=== PATIENT | female | born 1965 | race Caucasian/White ===

== ENCOUNTER 2017-03-31 20:50 | Emergency (ER) | payer OTHER ==
[2017-03-31 21:08] VITALS: BP 126/88
--- NOTE | 2017-03-31 21:24 | EDM.PDOC ---
[id number] THROAT Time Seen by Provider: 03/31/17 21:10 Source of Information: Reports: Patient History Limitations: Reports: No Limitations - History of Present Illness INITIAL COMMENTS - FREE TEXT/NARRATIVE: 51-year-old female with a sore throat for the past 3 days, worse today. No fevers or chills. No cough or rash. Onset: Gradual Duration: Day(s): (Over the past 3 days) Throat Pain Score (Numeric/FACES): 8 - Related Data Allergies Allergy/AdvReac Type Severity Reaction Status Date / Time meperidine [From Demerol] Allergy Itching Verified 03/31/17 21:12 nitrofurantoin Allergy Anaphylactic Verified 03/31/17 21:12 [From Macrobid] Shock Penicillins Allergy Hives Verified 03/31/17 21:12 Home Meds: Home Meds Escitalopram Oxalate [Lexapro] 30 mg PO DAILY 03/31/17 [History] Levothyroxine 75 mcg PO ACBREAKFAST 03/31/17 [History] Past Medical History - Infectious Disease History Infectious Disease History: Reports: Chicken Pox - Past Surgical History GI Surgical History: Reports: Appendectomy Female Surgical History: Reports: Hysterectomy Social & Family History - Tobacco Use Smoking Status *Q: Never Smoker - Caffeine Use Caffeine Use: Reports: Soda - Recreational Drug Use Recreational Drug Use: No ED ROS ENT - Review of Systems Review Of Systems: See Below Constitutional: Denies: Fever, Chills, Malaise HEENT: Reports: Throat Pain Respiratory: Denies: Shortness of Breath Cardiovascular: Denies: Chest Pain GI/Abdominal: Denies: Abdominal Pain Skin: Reports: No Symptoms ED EXAM, ENT - Physical Exam Exam: See Below Exam Limited By: No Limitations General Appearance: Alert, No Apparent Distress Mouth/Throat: Pharyngeal Erythema Head: Atraumatic Neck: No: Lymphadenopathy (R), Lymphadenopathy (L) Respiratory/Chest: No Respiratory Distress, Lungs Clear Cardiovascular: Regular Rate, Rhythm Course - Vital Signs Last Recorded V/S: Last Vital Signs Temp 97.6 F 03/31/17 21:07 Pulse 86 03/31/17 21:07 Resp 16 03/31/17 21:07 BP 126/88 03/31/17 21:07 Pulse Ox 98 03/31/17 21:07 - Orders/Labs/Meds Orders: Active Orders 24 hr Category Date Time Status CULTURE STREP A CONFIRMATION [RM] Routine Lab 03/31/17 21:22 Results STREP SCRN A RAPID W CULT CONF [] Routine Lab 03/31/17 21:22 Results Meds: Medications Discontinued Medications Generic Name Dose Route Start Last Admin Trade Name Amy PRN Reason Stop Dose Admin Lidocaine HCl Confirm 03/31/17 21:54 03/31/17 21:58 Xylocaine 2% Viscous Administered 03/31/17 21:55 Not Given Dose 15 ml .ROUTE .STK-MED ONE Lidocaine HCl 20 ml 03/31/17 21:55 03/31/17 21:59 Xylocaine 2% Viscous PO 03/31/17 21:56 20 ml ONETIME ONE Administration - Re-Assessments/Exams Free Text/Narrative Re-Assessment/Exam: 03/31/17 21:24 A rapid strep was obtained. 03/31/17 21:49 Rapid strep was negative. Patient was given some viscous lidocaine for symptom control and can recheck in 2-3 days if not improving satisfactorily. No antibiotics are indicated at this time. Departure - Departure Time of Disposition: 22:00 Disposition: Home, Self-Care 01 Condition: Good Clinical Impression: Pharyngitis Qualifiers: Pharyngitis/tonsillitis etiology: unspecified etiology Qualified Code(s): J02.9 - Acute pharyngitis, unspecified - Discharge Information Instructions: Pharyngitis, [id number] Referrals: PCP,None [Primary Care Provider] - Forms: ED Department Discharge Care Plan Goals: Use topical numbing medication as needed for the next 2-3 days, recheck if not improving satisfactorily. - My Orders Last 24 Hours: My Active Orders 03/31/17 21:22 CULTURE STREP A CONFIRMATION [RM] Routine STREP SCRN A RAPID W CULT CONF [] Routine - Assessment/Plan Last 24 Hours: My Active Orders 03/31/17 21:22 CULTURE STREP A CONFIRMATION [RM] Routine STREP SCRN A RAPID W CULT CONF [] Routine
[2017-03-31] MEDS ORDERED: Lidocaine 2% Viscous Solution 100 ML Bottle PO ONE ×2 (21:48→21:55)
[2017-03-31] MEDS ORDERED: Lidocaine 2% Viscous Solution 15 ML Cup ONE (21:54)
== END 2017-03-31 22:00 | disposition home or self-care (01) ==
LOC: JP.ED 20:50
DX: J02.9 Acute pharyngitis, unspecified (principal); Z88.0 Allergy status to penicillin; Z88.8 Allergy status to other drugs, medicaments and biological substances; Z79.899 Other long term (current) drug therapy; Z90.49 Acquired absence of other specified parts of digestive tract
CPT/HCPCS: 87081; 87430; 99283; A9270

== ENCOUNTER 2021-04-23 12:39 | Emergency (ER) | payer OTHER ==
[2021-04-23 13:05] VITALS: BP 130/81; PULSE 76
--- NOTE | 2021-04-23 13:25 | EDM.PDOC ---
<Jen Grace - Last Filed: 04/23/21 13:47> ED HPI GENERAL MEDICAL PROBLEM - General Chief Complaint: Upper Extremity Injury/Pain Stated Complaint: FELL AND HURT RT ELBOW Time Seen by Provider: 04/23/21 13:10 Source of Information: Reports: Patient History Limitations: Reports: No Limitations - History of Present Illness INITIAL COMMENTS - FREE TEXT/NARRATIVE: 55 year old female arrives with complaints of right elbow pain. She reports that she was using stairs when she slipped and fell. All of her weight came down on her right elbow. Severe pain initially and took her several minutes to gain composure. Was not evaluated yesterday due to a in the family. Came in today due to persistent pain and swelling of the elbow. She is able to move shoulder without pain, no wrist or hand pain. Will not fully extend elbow due to pain. mild amount of swelling noted as well as bruising at the posterior aspect. Onset: Sudden Onset Date: 04/21/21 Duration: Day(s): Location: Reports: Other (right elbow pain after fall on thursday) Quality: Reports: Throbbing Severity: Moderate Improves with: Reports: Rest Worsens with: Reports: Movement Context: Reports: Activity (walking down stairs and slipped) Associated Symptoms: Reports: No Other Symptoms. Denies: Cough, Diaphoresis, Fever/Chills, Headaches, Nausea/Vomiting, Rash - Related Data Allergies Allergy/AdvReac Type Severity Reaction Status Date / Time ciprofloxacin [From Cipro] Allergy Tachycardia Verified 04/23/21 13:06 meperidine [From Demerol] Allergy Itching Verified 04/23/21 13:06 nitrofurantoin Allergy Anaphylactic Verified 04/23/21 13:06 [From Macrobid] Shock Penicillins Allergy Hives Verified 04/23/21 13:06 Home Meds: Home Meds Escitalopram Oxalate [Lexapro] 30 mg PO DAILY 03/31/17 [History] Levothyroxine 75 mcg PO ACBREAKFAST 03/31/17 [History] Divalproex Sodium [Depakote] 125 mg PO BEDTIME 04/23/21 [History] Rosuvastatin [Crestor] 10 mg PO BEDTIME 04/23/21 [History] hydrOXYzine HCL [Hydroxyzine HCl] 25 mg PO BEDTIME 04/23/21 [History] Past Medical History Cardiovascular History: Reports: High Cholesterol Psychiatric History: Reports: Mood Swings - Infectious Disease History Infectious Disease History: Reports: Chicken Pox - Past Surgical History GI Surgical History: Reports: Appendectomy Female Surgical History: Reports: Hysterectomy Social & Family History - Tobacco Use Tobacco Use Status *Q: Never Tobacco User - Caffeine Use Caffeine Use: Reports: Soda Review of Systems - Review of Systems Review Of Systems: See Below Constitutional: Reports: No Symptoms. Denies: Chills, Diaphoresis, Fever, Weakness Eyes: Reports: No Symptoms Ears: Reports: No Symptoms. Denies: Dizziness Nose: Reports: No Symptoms Mouth/Throat: Reports: No Symptoms. Denies: Lip Swelling, Loose Teeth Respiratory: Reports: No Symptoms. Denies: Shortness of Breath, Wheezing Cardiovascular: Reports: No Symptoms. Denies: Chest Pain, Edema, Lightheadedness, Palpitations GI/Abdominal: Reports: No Symptoms. Denies: Abdominal Pain, Diarrhea, Nausea, Vomiting Genitourinary: Reports: No Symptoms Musculoskeletal: Reports: Other (right elbow pain after fall on thursday) Skin: Reports: No Symptoms. Denies: Diaphoresis Neurological: Reports: No Symptoms. Denies: Confusion, Headache, Numbness Psychiatric: Reports: No Symptoms ED EXAM, GENERAL - Physical Exam Exam: See Below Free Text/Narrative:: Rebecca is well appearing resting on chair in exam room 2. She is alert and oriented. skin is warm and dry. Her respirations are regular and non labored. She had no bruising or other obvious injuries to her head, neck, back, chest, abdomen, or other extremities. Right elbow appears mildly swollen with some bruising. Pain with extension and palpation of the elbow. Sensation is intact. Abdomen is soft and non tender. Lung sounds are clear throughout. No pedal edema. Exam Limited By: No Limitations General Appearance: Alert, WD/WN, No Apparent Distress Ears: Normal External Exam Nose: No Blood Throat/Mouth: Normal Inspection, Normal Teeth, No Airway Compromise Head: Atraumatic Neck: Normal Inspection, Supple, Non-Tender, Full Range of Motion Respiratory/Chest: No Respiratory Distress, Lungs Clear, Normal Breath Sounds, No Accessory Muscle Use, Chest Non-Tender. No: Respiratory Distress, Decreased Breath Sounds, Crackles, Wheezing Cardiovascular: Normal Peripheral Pulses, Regular Rate, Rhythm, No Edema. No: Tachycardia GI/Abdominal: Soft, Non-Tender. No: Guarding, Rigid, Tender (Female) Exam: Deferred Rectal (Female) Exam: Deferred Back Exam: Normal Inspection, Full Range of Motion Extremities: Other (mild swelling to right elbow post fall on thursday, bruise to posterior aspect, no numbness or tingling) Neurological: Alert, Oriented, Normal Cognition, Normal Gait. No: Confused, Slow to Respond Psychiatric: Normal Affect, Normal Mood Skin Exam: Warm, Dry, Intact, Normal Color, No Rash. No: Diaphoretic, Erythema, Increased Warmth Lymphatic: No Adenopathy Course - Vital Signs Text/Narrative:: Right Elbow Xray ordered. Results pending at this time. Patient agrees to this plan of care. Departure - Departure Disposition: Refer to Observation Clinical Impression: Bone bruise - Discharge Information Instructions: Elbow Contusion Referrals: Alexa Cruz MD [Primary Care Provider] - Forms: ED Department Discharge Additional Instructions: The Xray of your elbow was normal. You likely have a bone bruise/ contusion. You can use Tylenol and ibuprofen for pain and ice as needed. Return to ER if swelling increases, if you have any new injuries or new concerning symptoms. We will call you if the official read of the xray comes back abnormal. Sepsis Event Note (ED) - Evaluation Sepsis Screening Result: No Definite Risk <Bharat Estevez - Last Filed: 04/23/21 18:34> Course - Vital Signs Last Recorded V/S: Last Vital Signs Temp 98 F 04/23/21 13:11 Pulse 76 04/23/21 13:11 Resp 16 04/23/21 13:11 BP 130/81 04/23/21 13:11 Pulse Ox 97 04/23/21 13:11 Departure - Departure Time of Disposition: 14:03 Sepsis Event Note (ED) - Focused Exam Vital Signs: Vital Signs Temp Pulse Resp BP Pulse Ox 04/23/21 13:11 98 F 76 16 130/81 97 04/23/21 13:04 98 F 76 16 130/81 97 Attestation - Student - Attestation Statement Attestation Statement: I personally performed or re-performed the physical examination and medical decision making. I have verified all student documentation or findings, including history, physical exam and/or medical decision making.
--- NOTE | 2021-04-23 14:15 | CRLCR ---
For Patients: As a result of the Cures Act, medical imaging exams and procedure reports are released immediately into your electronic medical record. You may view this report before your referring provider. If you have questions, please contact your health care provider. INDICATION: 2 imagesfell 2 days ago, landed on her elbow HISTORY: Fall. COMPARISON: None. TECHNIQUE: Right elbow, 2 views. FINDINGS: There is osteophytic spurring present at the right elbow joint. There is no acute fracture. There is no malalignment. There is no lytic or blastic bone lesion. The anterior fat pad is not distended. The posterior fat pad is not visualized. IMPRESSION: 1. Degenerative arthrosis of the right elbow. 2. No acute fracture is identified. Dictated by Tim Scott MD @ 04/23/2021 2:13:20 PM Dictated by: Tim Scott MD @ 04/23/2021 14:13:28 (Electronically Signed)
== END 2021-04-23 14:03 ==
LOC: JP.ED 12:39
DX: S50.01XA Contusion of right elbow, initial encounter (principal); E78.00 Pure hypercholesterolemia, unspecified; Z88.1 Allergy status to other antibiotic agents; Z88.5 Allergy status to narcotic agent; Z88.0 Allergy status to penicillin; Z79.899 Other long term (current) drug therapy; W10.9XXA Fall (on) (from) unspecified stairs and steps, initial encounter
CPT/HCPCS: 73070-RT; 99283-25

== ENCOUNTER 2021-08-11 13:40 | Emergency (ER) | payer OTHER ==
--- NOTE | 2021-08-11 16:24 | EDM.PDOC ---
ED HPI GENERAL MEDICAL PROBLEM - General Chief Complaint: Back Pain or Injury Stated Complaint: SEVERE LT HIP/LEG PAIN Time Seen by Provider: 08/11/21 16:24 Source of Information: Reports: Patient, RN Notes Reviewed History Limitations: Reports: No Limitations - History of Present Illness INITIAL COMMENTS - FREE TEXT/NARRATIVE: Rebecca presents today for ongoing complaints of left low back pain with radiation to left leg. She complains of left leg sensation of numbness, tingling like it is asleep. Pain is 8-9/10 and constant. She has tried use of flexeril, motrin 800mg and tylenol 500mg for pain. Use of topicals have not helped her pain. She was evaluated per her primary and orthopedics and told she has some kind of nerve impingment. She has not had any advanced imaging done. She denies any recent injury/trauma/repetitive movements. She denies any saddle anesthesia or bladder/bowel incontinence. She denies fever, chills, nausea, vomiting, change in bowel/bladder or other concerns. Left Hip Pain Score (Numeric/FACES): 9 - Related Data Allergies Allergy/AdvReac Type Severity Reaction Status Date / Time ciprofloxacin [From Cipro] Allergy Tachycardia Verified 08/11/21 16:09 meperidine [From Demerol] Allergy Itching Verified 08/11/21 16:09 nitrofurantoin Allergy Anaphylactic Verified 08/11/21 16:09 [From Macrobid] Shock Penicillins Allergy Hives Verified 08/11/21 16:09 Home Meds: Home Meds Levothyroxine 88 mcg PO ACBREAKFAST 03/31/17 [History] Divalproex Sodium [Depakote] 125 mg PO BEDTIME 04/23/21 [History] Rosuvastatin [Crestor] 10 mg PO BEDTIME 04/23/21 [History] hydrOXYzine HCL [Hydroxyzine HCl] 25 mg PO BEDTIME 04/23/21 [History] Cyclobenzaprine [Flexeril] 10 mg PO ASDIRECTED 08/11/21 [History] buPROPion HCL [Wellbutrin Xl] 150 mg PO DAILY 08/11/21 [History] Past Medical History Cardiovascular History: Reports: High Cholesterol [employer] History: Reports: Psychiatric History: Reports: Depression, Mood Swings Endocrine/Metabolic History: Reports: Hypothyroidism - Infectious Disease History Infectious Disease History: Reports: Chicken Pox - Past Surgical History GI Surgical History: Reports: Appendectomy Female Surgical History: Reports: Hysterectomy Social & Family History - Tobacco Use Tobacco Use Status *Q: Never Tobacco User - Caffeine Use Caffeine Use: Reports: Coffee, Tea - Recreational Drug Use Recreational Drug Use: No ED ROS GENERAL - Review of Systems Review Of Systems: See Below Constitutional: Reports: No Symptoms HEENT: Reports: No Symptoms Respiratory: Reports: No Symptoms Cardiovascular: Reports: No Symptoms Endocrine: Reports: No Symptoms GI/Abdominal: Reports: No Symptoms : Reports: No Symptoms Musculoskeletal: Reports: Leg Pain, Other (low left back pain with radiculopathy to left leg) Skin: Reports: No Symptoms Neurological: Reports: Numbness (left leg and left foot), Tingling (left leg and left foot). Denies: Dizziness, Headache, Paresthesia, Pre-Existing Deficit, Syncope, Tremors, Difficulty Walking, Weakness, Change in Speech, Gait Disturbance Psychiatric: Reports: No Symptoms Hematologic/Lymphatic: Reports: No Symptoms Immunologic: Reports: No Symptoms ED EXAM,LOWER BACK PAIN/INJURY - Physical Exam Exam: See Below Exam Limited By: No Limitations General Appearance: Alert, WD/WN, Mild Distress Eye Exam: Bilateral Eye: Normal Inspection, PERRL Ears: Normal External Exam, Normal Canal, Hearing Grossly Normal, Normal TMs Nose: Normal Inspection, Normal Mucosa, No Blood Throat/Mouth: Normal Inspection, Normal Lips, Normal Teeth, Normal Gums, Normal Oropharynx, Normal Voice, No Airway Compromise Head: Atraumatic, Normocephalic Neck: Normal Inspection, Supple, Non-Tender, Full Range of Motion. No: Lymphadenopathy (R), Lymphadenopathy (L) Respiratory/Chest: No Respiratory Distress, Lungs Clear, Normal Breath Sounds, No Accessory Muscle Use, Chest Non-Tender. No: Crackles, Rales, Rhonchi, Wheezing, Stridor, Retractions, Splinting Cardiovascular: Normal Peripheral Pulses, Regular Rate, Rhythm, No Edema, No Gallop, No Murmur, No Rub GI/Abdominal: Normal Bowel Sounds, Soft, Non-Tender, No Organomegaly, No Distention, No Mass. No: Guarding, Rigid, Rebound, Tender Back Exam: Normal Inspection, Full Range of Motion. No: CVA Tenderness (R), CVA Tenderness (L) Extremities: Normal Inspection, Normal Range of Motion, Non-Tender, No Pedal Edema, Normal Capillary Refill, Leg Pain (radicular pain from left lower lumbar). No: Suzan's Sign Neurological: Alert, Normal Mood/Affect, Normal Dorsiflexion, CN II-XII Intact, Normal Plantar Flexion, Normal Gait, Normal Reflexes, No Motor/Sensory Deficits, Oriented x 3. No: Straight Leg Raise (L), Straight Leg Raise (R), Saddle Anesthesia, Difficulty Walking DTR - Lower Extremities: 3+: Knee (L) (slightly less then right), 4+: Knee (R) Psychiatric: Normal Affect, Normal Mood Skin Exam: Warm, Dry, Intact, Normal Color, No Rash. No: Cyanosis, Diaphoretic, Ecchymosis, Erythema, Jaundice, Mottled, Pallor, Petechiae, Rash Lymphatic: No Adenopathy Course - Vital Signs Last Recorded V/S: Last Vital Signs Temp 36.7 C 08/11/21 16:08 Pulse 112 H 08/11/21 18:13 Resp 18 08/11/21 16:08 BP 179/117 H 08/11/21 18:13 Pulse Ox 100 08/11/21 16:08 Recheck BP prior to discharge 168/98 - Orders/Labs/Meds Meds: Medications Discontinued Medications Generic Name Dose Route Start Last Admin Trade Name Amy PRN Reason Stop Dose Admin Ketorolac Tromethamine 30 mg 08/11/21 16:55 08/11/21 17:20 Ketorolac 30 Mg/Ml Sdv IM 08/11/21 16:56 30 mg ONETIME ONE Administration Labetalol HCl 100 mg 08/11/21 17:58 08/11/21 18:13 Labetalol 100 Mg Tab PO 08/11/21 17:59 100 mg ONETIME ONE Administration Prednisone 40 mg 08/11/21 17:01 08/11/21 17:20 Prednisone 20 Mg Tab PO 08/11/21 17:02 40 mg ONETIME ONE Administration Tramadol HCl 50 mg 08/11/21 16:55 08/11/21 17:20 Tramadol 50 Mg Tab PO 08/11/21 16:56 50 mg ONETIME ONE Administration - Re-Assessments/Exams Free Text/Narrative Re-Assessment/Exam: 08/11/21 17:59 Rebecca reports her pain is 5-6/10, she would like to go home. Offered to provide medication for hypertension, patient requests to be discharged and to follow up with primary. All of her questions were answered, she was advised to return for worsening, any bladder/bowel incontinence or saddle anesthesia. Patient verbalized understanding. [place] [employer] reviewed, no fills of controlled substances. Departure - Departure Time of Disposition: 18:00 Disposition: Home, Self-Care 01 Condition: Good Clinical Impression: Lumbar radiculopathy, acute - Discharge Information Instructions: Radicular Pain Referrals: Alexa Cruz MD [Primary Care Provider] - Forms: ED Department Discharge Additional Instructions: You have been evaluated and treated for low lumbar pain with left radiculopathy. Hypertension- blood pressures 160-170s/100s. Labetalol 100mg PO in emergency room prior to discharge and follow up with primary. Stop use of flexeril. Stop use of ibuprofen. You were given toradol 30mg IM and tramadol 50mg by mouth while in the emergency room for pain. Take naproxen 500mgy by mouth every 12 hours for pain. Start naproxen around 1am if awake. Take tylenole 1000mby by mouth three times a day as needed for pain. Take prednisone 40mg by mouth once a day for 6 days for pain. Take baclofen 10mgy by mouth three times a day as needed for pain/muscle spasms. Follow up with primary for ongoing care and in 3 to 7 days for recheck. Advise MRI lumbosacral and hip - as most recent orthopedic visit suggested some kind of impingement. Return for any worsening, loss of bowel/bladder control or loss of sensation to genitals. May need to see neurosurgery or pain management if determined appropriate per primary provider. Sepsis Event Note (ED) - Evaluation Sepsis Screening Result: No Definite Risk - Focused Exam Vital Signs: Vital Signs Temp Pulse Pulse Resp BP BP Pulse Ox 08/11/21 18:13 112 H 179/117 H 08/11/21 17:52 165/114 H 08/11/21 16:08 36.7 C 115 H 18 177/116 H 100 08/11/21 15:50 36.7 C 115 H 18 177/116 H 100 - Assessment/Plan Assessment:: Lumbar radiculopathy, acute Offered use of carbamazepine for pain, however she takes depakote for mood stabilization. Advised to obtain advanced imaging if appropriate per primary. Plan: Patient evaluated and treated for low lumbar pain with left radiculopathy. Hypertension. Stop use of flexeril. Stop use of ibuprofen. Patient given toradol 30mg IM and tramadol 50mg by mouth while in the emergency room for pain. Take naproxen 500mgy by mouth every 12 hours for pain. Start naproxen around 1am if awake. Take tylenole 1000mby by mouth three times a day as needed for pain. Take prednisone 40mg by mouth once a day for 6 days for pain. Take baclofen 10mgy by mouth three times a day as needed for pain/muscle spasms. Follow up with primary for ongoing care and in 3 to 7 days for recheck. Advise MRI lumbosacral and hip - as most recent orthopedic visit suggested some kind of impingement. Return for any worsening, loss of bowel/bladder control or loss of sensation to genitals. May need to see neurosurgery or pain management if determined appropriate per primary provider.
[2021-08-11] MEDS ORDERED: Ketorolac 30 MG/ML SDV IM ONE (16:55)
[2021-08-11] MEDS ORDERED: traMADol 50 MG Tab PO ONE (16:55)
[2021-08-11] MEDS ORDERED: predniSONE 20 MG Tab PO ONE (17:01)
[2021-08-11] MEDS ORDERED: Labetalol 100 MG Tab PO ONE (17:58)
[2021-08-11 18:16] VITALS: BP 179/117; PULSE 112
== END 2021-08-11 18:18 | disposition home or self-care (01) ==
LOC: JP.ED 13:40
DX: M54.16 Radiculopathy, lumbar region (principal); E78.00 Pure hypercholesterolemia, unspecified; E03.9 Hypothyroidism, unspecified; Z79.899 Other long term (current) drug therapy; Z88.1 Allergy status to other antibiotic agents; Z88.0 Allergy status to penicillin; Z88.5 Allergy status to narcotic agent
CPT/HCPCS: 96372; 99283; A9270; J1885; J7512

== ENCOUNTER 2022-04-29 08:52 | Day surgery (SDC) | payer OTHER ==
[2022-04-29] MEDS: Lactated Ringers 1,000 ML IV SCH (10:03)
[2022-04-29 11:55] VITALS: BP 122/90; PULSE 63
== END 2022-04-29 12:08 | disposition home or self-care (01) ==
LOC: JP.SDS 08:52
PROVIDERS: ATTEND Family Medicine
DX: Z12.11 Encounter for screening for malignant neoplasm of colon (principal); Z86.010 Personal history of colon polyps
CPT/HCPCS: 45378; J7120